=== PATIENT | female | born 2000 | race Caucasian/White ===

== ENCOUNTER 2021-01-10 02:47 | Inpatient (IN) ==
[2021-01-10] MEDS ORDERED: LACTATED RINGER'S 1,000 ML IV PRN (03:37)
[2021-01-10] MEDS ORDERED: OXYTOCIN 30 UNITS/500 ML BAG IV PRN ×2 (03:37→05:03)
[2021-01-10] MEDS ORDERED: ePHEDrine sulfate 50 MG/ML AMP ONE (04:01)
[2021-01-10] MEDS ORDERED: fentaNYL citrate 100 MCG/2 ML VIAL ONE (04:01)
[2021-01-10] MEDS ORDERED: BUPIVACAINE 0.25% 30 ML VIAL ONE (04:01)
[2021-01-10] MEDS ORDERED: SODIUM CHLORIDE 0.9% INJ 10 ML VIAL ONE (04:01)
[2021-01-10] MEDS ORDERED: fentaNYL 2MCG/ML ROPIVACAINE 1.25MG/ML 100 ML BAG EPI ONE (04:01)
--- NOTE | 2021-01-10 04:17 | History & Physical Report ---
Date of Service January 10, 2021 Assessment & Plan (1) Spontaneous rupture of amniotic membranes: 20 yo at 37.2 wks with SROM active labor VSS Afebrile FHR reasssuring GBS neg Plan admit, monitor, epidural for pain Admission and Anticipated Discharge Date Admission Date: January 10, 2021 History of Present Illness Primary Care Provider: Yogi Cowan MD Patient is a 20 yo at 37.3 who woke up with gush of fluid at 0200 am, ctxs started rigth after No VB +FM's has been uncomplicated except obesity, Rh negative GBS neg Allergies Allergy/AdvReac Type Severity Reaction Status Date / Time Penicillins Allergy Severe HIVES Verified 01/10/21 03:12 wheat AdvReac Gastrointestinal Verified 01/10/21 03:12 Upset Home Medications Medication Instructions Recorded Confirmed Type CALCIUM CARBONATE (CALCIUM) 1 tab PO BID #0 04/17/15 01/10/21 History CHOLECALCIFEROL (VITAMIN D) 1 cap PO DAILY #0 04/17/15 01/10/21 History MULTIPLE VITAMIN (MULTIVITAMIN) 1 tab PO DAILY 90 Days #90 tab 04/17/15 01/10/21 History ferrous sulfate [Iron (ferrous 325 mg 01/10/21 History sulfate)] Patient History Medical History Celiac disease Depression as a child was on lexapro until age 15 Surgical History Hx of foot surgery growth plate in right foot in 2009 Social History Smoking Status: Never smoker Second Hand Exposure: No; Hx Alcohol Use: No Hx Substance Use: No Preferred Language: Iranian Communication Ability: Effective Manager Material Required: No Beliefs That Will Affect Care: None marital status: Single Current Living Situation: Significant Other Other Information That Helps Us Care for You: No Feels Safe at Home: Yes Safety Concerns: Feels Safe At This Time Assistive Devices: Glasses 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 No h/o STD's, no h/o genital HSV/ Chlamydia/ GC Review of Systems All systems reviewed & are unremarkable except as noted in HPI & below Physical Exam Constitutional: WD/WN, vitals as above well developed, well nourished and + acute distress Genitourinary: normal external appearance Manual OB Exam: + cervical dilation 8 cm, + cervical effacement 80%, + station 0 and + amniotic fluid clear OB Exam Monitor Tracing: + external uterine monitor used and + category I Results & Data ([facility] [place]) Vital Signs (Past 12 Hours) Vital Signs Temp Pulse Resp BP 01/10/21 03:16 36.8 C 18 01/10/21 03:11 94 H 123/78 Code Status & VTE Plan VTE Prophylaxis Plan VTE Prophylaxis will be ordered: No
[2021-01-10 04:32] LABS: Hematocrit (blood only) 37.7 % (37-47); Hemoglobin 12.4 g/dL (12.0-16.0); Mean Corpuscular Hemoglobin 25.8 pg (25-34); Mean Corpuscular Hgb Conc 32.9 g/dL (32-36); Mean Corpuscular Volume 78.5 fL (80-100); Mean Platelet Volume 8.9 fL (7.4-10.4); Platelet Count 311 K/uL (130-400); RDW Coefficient of Variation 17.2 % (11.5-14.5); RDW Standard Deviation 48.3 fL (36.4-46.3); White Blood Count 8.03 K/uL (4.8-10.8)
[2021-01-10] MEDS ORDERED: LIDOCAINE 1% LOCAL 20 ML VIAL ONE (04:56)
[2021-01-10] MEDS ORDERED: LIDOCAINE/EPINEPHRINE 1% 20 ML VIAL ONE (04:56)
[2021-01-10] MEDS ORDERED: BENZOCAINE 20% AER SPR 82.5 GM CAN EXT PRN (05:03)
[2021-01-10] MEDS ORDERED: ACETAMINOPHEN 325 MG TAB PO PRN (05:03)
[2021-01-10] MEDS ORDERED: MEASLES, MUMPS & RUBELLA VIRUS VIAL SQ ONE (05:03)
[2021-01-10] MEDS ORDERED: oxyCODONE/ACETAMINOPHEN 5mg/325mg TAB PO PRN (05:03)
[2021-01-10] MEDS ORDERED: HYDROCORTISONE ACETATE 25 MG SUPP PR PRN (05:03)
[2021-01-10] MEDS ORDERED: SUPERCREAM 0.870% 15 GM JAR EXT PRN (05:03)
[2021-01-10] MEDS ORDERED: bisacodyL 10 MG SUPP PR PRN (05:03)
[2021-01-10] MEDS ORDERED: DIPHTHERIA/TETANUS/PERTUSSIS 0.5 ML SYR/VIAL IM ONE (05:03)
[2021-01-10] MEDS ORDERED: METHYLERGONOVINE MALEATE 0.2 MG/ML AMP ONE (05:03)
--- NOTE | 2021-01-10 06:39 | Operative Report (OR) ---
DELIVERY NOTE DATE OF PROCEDURE: 01/10/2021. This is a 1, para 1, blood type A negative, group B negative, due date 01/28/2021. Was admit servando in active spontaneous labor, delivered soon after arrival at the hospital. She delivered a live male via direct occiput anterior position over an intact perineum. She did not have an epidural. Af ter delivery of the , the cord was allowed to pulse for a full minute, then clamped, cut by the father. Cord blood was taken. With IV Pitocin running, the placenta was removed intact. Inspectio n of the perineum revealed a first-degree laceration. The vaginal mucosa was approximated out and to beyond the hymenal ring with a running heavy Vicryl. A deep suture of Vicryl was used to reapproxim ate the perineal body, separate deep sutures to approximate the bulbocavernosus muscle, and a running subcuticular suture of Vicryl was used to reapproximate the perineal skin edges. Following this, va g exam was normal. There were no sponges in the vagina. The patient tolerated the procedure well. Estimated blood loss was 400 mL. Job ID: [id number]
[2021-01-10] MEDS ORDERED: FERROUS SULFATE 325 MG TAB PO SCH (08:00)
[2021-01-10] MEDS ORDERED: PRENATAL VITAMIN 1 TAB PO SCH (08:00)
[2021-01-10] MEDS: IBUPROFEN 600 MG TAB PO PRN ×2 (13:29→22:58)
[2021-01-10] MEDS: DOCUSATE SODIUM 100 MG CAP PO SCH (20:23)
[2021-01-11] MEDS: IBUPROFEN 600 MG TAB PO PRN (06:10)
--- NOTE | 2021-01-11 06:28 | Obstetrical Progress Note ---
Date of Service January 11, 2021 Assessment & Plan (1) Normal course: PPD #1 pt doing well continue care Subjective Ambulation: ambulating normally Voiding: no voiding problems Passing Gas:: Yes Diet Tolerance:: regular diet Lochia:: Small Feeding Type:: breast feeding Review of Systems All systems reviewed & are unremarkable except as noted in HPI & below Physical Exam Constitutional WD/WN, vitals as above well developed and well nourished Eyes PERRL, conjunctivae normal, anicteric sclerae Neck trachea midline, no thyromegaly Respiratory normal respiratory effort, lungs clear to auscultation Auscultation: no crackles, no rales and no wheezes Cardiovascular RRR, no murmur, no edema Gastrointestinal (Abdomen) normal bowel sounds, soft, nontender, no hepatosplenomegaly Uterus is below umbilicus Musculoskeletal no cyanosis or clubbing, extremities motor strength 5/5 Skin no rashes, warm and dry Neurologic patellar DTR's 2+ bilat, sensation intact Psychiatric A+Ox3, euthymic affect Genitourinary normal external appearance Results & Data ([facility]) Vital Signs (Past 12 Hours) Vital Signs Temp Pulse Resp BP Pulse Ox 01/11/21 03:00 36.6 C 78 16 109/77 98 01/10/21 22:54 36.9 C 73 16 114/78 98 01/10/21 19:05 36.9 C 87 16 128/75 99
[2021-01-11 06:50] LABS: Hematocrit (blood only) 32.8 % (37-47); Hemoglobin 10.6 g/dL (12.0-16.0); Mean Corpuscular Hemoglobin 25.7 pg (25-34); Mean Corpuscular Hgb Conc 32.3 g/dL (32-36); Mean Corpuscular Volume 79.4 fL (80-100); Mean Platelet Volume 8.8 fL (7.4-10.4); Platelet Count 282 K/uL (130-400); RDW Coefficient of Variation 17.8 % (11.5-14.5); RDW Standard Deviation 50.5 fL (36.4-46.3); Red Blood Count 4.13 M/uL (4.2-5.4); White Blood Count 8.52 K/uL (4.8-10.8)
[2021-01-11] MEDS: DOCUSATE SODIUM 100 MG CAP PO SCH (08:30)
--- NOTE | 2021-01-11 11:14 | Obstetrical Progress Note ---
Date of Service January 11, 2021 Assessment & Plan (1) Normal course: PPD #2 pt doing well disch home Subjective Ambulation: ambulating normally Voiding: no voiding problems Passing Gas:: Yes Diet Tolerance:: regular diet Lochia:: Small Feeding Type:: breast feeding Review of Systems All systems reviewed & are unremarkable except as noted in HPI & below Physical Exam Constitutional WD/WN, vitals as above well developed and well nourished Eyes PERRL, conjunctivae normal, anicteric sclerae Neck trachea midline, no thyromegaly Respiratory normal respiratory effort, lungs clear to auscultation Auscultation: no crackles, no rales and no wheezes Cardiovascular RRR, no murmur, no edema Gastrointestinal (Abdomen) normal bowel sounds, soft, nontender, no hepatosplenomegaly Uterus is below umbilicus Musculoskeletal no cyanosis or clubbing, extremities motor strength 5/5 Skin no rashes, warm and dry Neurologic patellar DTR's 2+ bilat, sensation intact Psychiatric A+Ox3, euthymic affect Genitourinary normal external appearance Results & Data ([facility]) Vital Signs (Past 12 Hours) Vital Signs Temp Pulse Pulse Resp BP BP Pulse Ox 01/11/21 08:47 36.8 C 86 16 122/72 100 01/11/21 08:10 36.8 C 72 16 115/72 100 01/11/21 03:00 36.6 C 78 16 109/77 98
[2021-01-11] MEDS ORDERED: bisacodyL 5 MG TABEC PO SCH (20:00)
== END 2021-01-11 15:30 | disposition home or self-care (01) | DRG 807 ==
LOC: OPB 02:47 → 4S1 02:53 → 4S2 11:32